=== PATIENT | male | born 1940 | race Caucasian/White ===

== ENCOUNTER 2016-10-10 12:50 | Outpatient (CLI) | payer MEDICARE, BC | END 2016-10-10 12:51 | disposition home or self-care (01) | DX: R60.0 Localized edema (principal); E87.6 Hypokalemia; R10.9 Unspecified abdominal pain; R53.83 Other fatigue; I10 Essential (primary) hypertension ==

== ENCOUNTER 2016-10-12 07:30 | Outpatient (CLI) | payer MEDICARE, BC | END 2016-10-12 07:31 | disposition home or self-care (01) | DX: R19.7 Diarrhea, unspecified (principal) ==

== ENCOUNTER 2016-11-03 11:15 | Outpatient (CLI) | payer MEDICARE, BC | END 2016-11-03 11:16 | disposition home or self-care (01) | DX: R60.0 Localized edema (principal) ==

== ENCOUNTER 2016-12-18 11:17 | Outpatient (CLI) | payer MEDICARE, BC | END 2016-12-18 11:18 | disposition home or self-care (01) | LOC: DI 11:17 | PROVIDERS: ATTEND Family Medicine | DX: R60.0 Localized edema (principal); R63.4 Abnormal weight loss; R53.83 Other fatigue; I49.3 Ventricular premature depolarization | CPT/HCPCS: 93306 ==

== ENCOUNTER 2017-02-27 11:22 | Outpatient (CLI) | payer MEDICARE, BC ==
[2017-02-27 18:33] LABS: BUN - BLOOD UREA NITROGEN 24 mg/dL (6-20); CALCIUM 9.5 mg/dL (8.5-10.3); CARBON DIOXIDE - CO2 25 mmol/L (21-32); CHLORIDE 108 mmol/L (101-111); CHOL/HDL RATIO 2.3 (<5.0); CHOLESTEROL 130 mg/dL; CREATININE 1.1 mg/dL (0.6-1.2); GFR - MDRD 65 (>89); GLUCOSE 78 mg/dL (70-100); HDL CHOLESTEROL 57 mg/dL; SODIUM 140 mmol/L (135-145); TRIGLYCERIDES 73 mg/dL; VLDL CHOLESTEROL 15 mg/dL
== END 2017-02-27 11:23 | disposition home or self-care (01) ==
LOC: LAB.F 11:22
PROVIDERS: ATTEND Internal Medicine
DX: E87.6 Hypokalemia (principal); E78.00 Pure hypercholesterolemia, unspecified; E55.9 Vitamin D deficiency, unspecified
CPT/HCPCS: 36415; 80048; 80061; 82652

== ENCOUNTER 2017-10-29 08:13 | Outpatient (CLI) | payer MEDICARE, BC ==
[2017-10-29 10:31] LABS: BASOPHILS # (AUTO) 0.1 10^3/uL (0.0-0.1); BASOPHILS % (AUTO) 0.9 %; EOSINOPHILS # (AUTO) 0.3 10^3/uL (0.0-0.7); HGB - HEMOGLOBIN 13.4 g/dL (14.0-18.0); LYMPHOCYTES # (AUTO) 1.9 10^3/uL (1.5-3.5); LYMPHOCYTES % (AUTO) 26.2 %; MEAN CORPUSCULAR HEMOGLOBIN 31.9 pg (27.0-31.0); MEAN CORPUSCULAR HGB CONC 34.5 g/dL (32.0-36.0); MEAN CORPUSCULAR VOLUME 92.6 fL (80.0-94.0); MEAN PLATELET VOLUME 9.2 fL (7.4-11.4); MONOCYTES # (AUTO) 0.6 10^3/uL (0.0-1.0); MONOCYTES % (AUTO) 8.4 %; NEUTROPHILS # (AUTO) 4.5 10^3/uL (1.5-6.6); NEUTROPHILS % (AUTO) 60.5 %; PLT - PLATELET COUNT 185 10^3/uL (130-450); RED BLOOD COUNT 4.18 10^6/uL (4.70-6.10); RED CELL DISTRIBUTION WIDTH 13.2 % (12.0-15.0); WHITE BLOOD COUNT 7.4 x10^3/uL (4.8-10.8)
[2017-10-29 10:45] LABS: ALBUMIN 3.8 g/dL (3.2-5.5); ALBUMIN/GLOBULIN RATIO 1.2 (1.0-2.2); ALKALINE PHOSPHATASE 79 IU/L (42-121); ALT ALANINE AMINOTRANSFERASE 19 IU/L (10-60); AST ASPARTATE AMINOTRANSFERASE 22 IU/L (10-42); BUN - BLOOD UREA NITROGEN 20 mg/dL (6-20); CALCIUM 9.4 mg/dL (8.5-10.3); CARBON DIOXIDE - CO2 27 mmol/L (21-32); CHLORIDE 100 mmol/L (101-111); CHOL/HDL RATIO 2.5 (<5.0); CHOLESTEROL 113 mg/dL; CREATININE 0.9 mg/dL (0.6-1.2); GFR - MDRD 82 (>89); GLUCOSE 129 mg/dL (70-100); HDL CHOLESTEROL 45 mg/dL; LDL CHOLESTEROL,CALCULATED 57 mg/dL; LDL/HDL RATIO 1.3 (<3.6); SODIUM 137 mmol/L (135-145); TOTAL PROTEIN 6.9 g/dL (6.7-8.2); VLDL CHOLESTEROL 11 mg/dL
== END 2017-10-29 08:14 | disposition home or self-care (01) ==
LOC: LAB.F 08:13
PROVIDERS: ATTEND Family Medicine
DX: E78.00 Pure hypercholesterolemia, unspecified (principal); I10 Essential (primary) hypertension; R53.83 Other fatigue; R60.0 Localized edema
CPT/HCPCS: 36415; 80053; 80061; 83721; 84443; 85025